=== PATIENT | female | born 1960 | race Caucasian/White ===

== ENCOUNTER 2018-01-06 08:22 | Emergency (ER) | payer OTHER ==
[~2018-01-06] VITALS: Ht 165.1 cm; Wt 89.6 kg
[~2018-01-06 08:22] MED LIST: ASPI81TA28 PO; CITA40TA12 PO; CYCL10TA6 PO; KLN5X PO; PREG1CAP28 PO; SIMV20TA2 PO; TRAM1TAB14 PO
[2018-01-06 08:26] VITALS: TEMP 37.4; Ht 165.1 cm; Wt 89.6 kg
[2018-01-06] MEDS ORDERED: SULF1TAB92 PO (08:50)
[2018-01-06] MEDS ORDERED: ONDANSETRON INJ 2 MG/ML 2 ML VIAL IV STA (08:59)
[2018-01-06] MEDS ORDERED: SODIUM CHLORIDE 0.9% 1000ML 1,000 ML IV STA (08:59)
[2018-01-06] MEDS: MoRPHine SULFATE 4 MG/ML 1 ML CARP\\VIAL IV PRN ×2 (09:09→10:02)
[2018-01-06] MEDS ORDERED: OPTIRAY 320 IV PRN (09:15)
[2018-01-06 09:21] LABS: BASO % 0.2 %; BASO ABS # 0.02 K/uL (0-0.2); EOS % 0.2 %; EOS ABS # 0.02 K/uL (0-0.5); HEMATOCRIT 42.6 % (37-47); HEMOGLOBIN 14.9 g/dL (12.0-16.0); IG# 0.02 K/uL (0.00-0.02); LYMPH % 17.6 %; LYMPH ABS # 1.42 K/uL (1.2-3.4); MEAN CELL VOLUME 87.1 fL (80-100); MEAN CORPUSCULAR HEMOGLOBIN 30.5 pg (25-34); MEAN PLATELET VOLUME 9.3 fL (7.4-10.4); MONO % 8.8 %; MONO ABS # 0.71 K/uL (0.11-0.59); PLATELET COUNT 154 K/uL (130-400); RED CELL DISTRIBUTION WIDTH CV 13.6 % (11.5-14.5); RED CELL DISTRIBUTION WIDTH SD 43.3 fL (36.4-46.3); WHITE BLOOD COUNT 8.09 K/uL (4.8-10.8)
[2018-01-06 09:41] LABS: ALBUMIN 3.8 gm/dl (3.4-5.0); CALCIUM 8.6 mg/dl (8.5-10.1); CREATININE 0.63 mg/dl (0.60-1.20); POTASSIUM 3.5 mmol/L (3.5-5.1)
[2018-01-06 09:44] LABS: TOTAL PROTEIN 7.4 gm/dl (6.4-8.2)
--- NOTE | 2018-01-06 10:29 | DIAGNOSTIC IMAGING REPORT ---
ABDOMEN AND PELVIS CT WITH IV CONTRAST CT DOSE: 694.56 mGy.cm HISTORY: Acute lower abdominal pain lower abd pain, hx hyster, appy, gallbladder removed. ? diverti TECHNIQUE: Multiaxial CT images of the abdomen and pelvis were performed following the use of intravenous contrast. A dose lowering technique was utilized adhering to the principles of ALARA. COMPARISON STUDY: None. FINDINGS: Partially imaged cysts of the left lower lobe. Mild subsegmental bibasilar atelectasis. There is no pneumatosis or pneumoperitoneum identified. Imaged inferior cardiac chambers are unremarkable. Evaluation of the solid abdominal organs is limited without the use of IV contrast. There is moderate intrahepatic biliary ductal dilation, likely secondary to postcholecystectomy state with dilation of the common bile duct measuring 1.7 cm transversely, also likely postsurgical in nature. There are several calcified lesions of the subcapsular posterior right hepatic lobe measuring up to 6 mm. Spleen, and adrenal glands are unremarkable. Moderate generalized pancreatic atrophy. Low attenuating lesions of the kidneys bilaterally measuring up to 2.7 cm on the left suggesting renal cyst. No renal calculi or obstructive uropathy. The ureters and bladder appear unremarkable. Uterus appears to be surgically absent. Moderate atherosclerosis of the aorta without aneurysm. No bulky adenopathy. Postsurgical changes of the stomach suggesting prior gastric bypass with small hiatal hernia. There is no small bowel obstruction. There is moderate circumferential wall thickening about the distal sigmoid colon with moderate to extensive inflammatory changes centered about an inflamed diverticulum on image 334 series 3. No evidence of perforation or drainable fluid collection. Mild free fluid within the dependent pelvis. The appendix appears surgically absent. Soft tissues are unremarkable. Multilevel degenerative changes about the spine. IMPRESSION: 1. Findings compatible with acute uncomplicated sigmoid diverticulitis. No evidence of perforation or abscess. 2. No evidence of small bowel obstruction. 3. Prior cholecystectomy, hysterectomy, appendectomy and gastric bypass. 4. Moderate intrahepatic and extrahepatic biliary ductal dilation is likely secondary to postcholecystectomy state. Electronically signed by: Eleazar Fofana M.D. 01/06/2018 10:27 AM Dictated Date/Time: 01/06/2018 10:19 AM
[2018-01-06] MEDS ORDERED: CIPROFLOXACIN 500 MG TAB PO STA (10:46)
[2018-01-06] MEDS ORDERED: METRONIDAZOLE 250 MG TAB PO STA (10:46)
[2018-01-06 11:09] VITALS: BP 121/77; PULSE 90; O2SAT 95
--- NOTE | 2018-01-06 11:26 | EMERGENCY ROOM VISIT NOTE ---
History Report prepared by Ruma: Zohaib Pollock Under the Supervision of: Dr. Mark Powell D.O. First contact with patient: 08:53 Chief Complaint: ABDOMINAL PAIN Stated Complaint: ABD PAIN History of Present Illness The patient is a 57 year old female who presents to the Emergency Room with complaints of constant abdominal pain for the past 4 days. The patient states that the pain is worsened with walking and sitting down. The patient notes that she has a history of diverticulitis, and she states that the pain feels similar. She additionally notes that she has been nauseous for the past 3 days, and she was able to eat a little bit yesterday. She denies any vomiting, though she is dry heaving. The patient states that she had diarrhea a few days ago, though she now is constipated. She notes that she has been passing a lot a foul smelling gas recently. She has a history of a hysterectomy, cholecystectomy, appendectomy, and a gastric bypass surgery. The patient states that she has recently been getting over a UTI, and she states that this feels different than a UTI. She states that she is not currently on any blood thinners. The patient denies any shortness of breath or cough. Source of History: patient Onset: 4 days ago Position: abdomen Timing: constant Modifying Factors (Worsening): other (walking and sitting) Associated Symptoms: + nausea, + diarrhea, No cough, No SOB, No vomiting Note: Associated symptoms: passing a lot of foul smelling gas Review of Systems See HPI for pertinent positives & negatives. A total of 10 systems reviewed and were otherwise negative. Past Medical & Surgical Medical Problems: (1) Arthritis (2) Fibromyalgia (3) Osteoporosis Social History Smoking Status: Never Smoker Marital Status: Housing Status: lives with significant other Occupation Status: retired Current/Historical Medications Scheduled Trimethoprim/Sulfamethoxazole (Bactrim 400MG/80MG), 0.5 TAB PO DAILY Allergies Coded Allergies: Codeine (Verified Allergy, Unknown, ., 01/06/18) Physical Exam Vital Signs Date Time Temp Pulse Resp B/P (MAP) Pulse Ox O2 Delivery O2 Flow Rate FiO2 01/06/18 11:09 90 16 121/77 95 Room Air 01/06/18 10:01 82 16 125/61 95 Room Air 01/06/18 08:26 37.4 99 20 121/79 96 Room Air Physical Exam CONSTITUTIONAL/VITAL SIGNS: Reviewed / noted above. GENERAL: Non-toxic in appearance. INTEGUMENTARY: Warm, dry, and [place]. HEAD: Normocephalic. EYES: without scleral icterus or trauma. ENT/OROPHARYNX: clear and moist. LYMPHADENOPATHY/NECK: Is supple without lymphadenopathy or meningismus. RESPIRATORY: Lungs clear and equal. CARDIOVASCULAR: Regular rate and rhythm. GI/ABDOMEN: Diffuse tenderness to the lower abdomen. Soft. No organomegaly or pulsatile mass. No rebound or guarding. Normal bowel sounds. EXTREMITIES: Warm and well perfused. BACK: No CVA tenderness. NEUROLOGICAL: Intact without focal deficits. PSYCHIATRIC: normal affect. MUSCULOSKELETAL: Normally developed with good muscle tone. Medical Decision & Procedures ER Provider Diagnostic Interpretation: Radiology results as stated below per my review and radiologist interpretation: ABDOMEN AND PELVIS CT WITH IV CONTRAST CT DOSE: 694.56 mGy.cm HISTORY: Acute lower abdominal pain lower abd pain, hx hyster, appy, gallbladder removed. ? diverti TECHNIQUE: Multiaxial CT images of the abdomen and pelvis were performed following the use of intravenous contrast. A dose lowering technique was utilized adhering to the principles of ALARA. COMPARISON STUDY: None. FINDINGS: Partially imaged cysts of the left lower lobe. Mild subsegmental bibasilar atelectasis. There is no pneumatosis or pneumoperitoneum identified. Imaged inferior cardiac chambers are unremarkable. Evaluation of the solid abdominal organs is limited without the use of IV contrast. There is moderate intrahepatic biliary ductal dilation, likely secondary to postcholecystectomy state with dilation of the common bile duct measuring 1.7 cm transversely, also likely postsurgical in nature. There are several calcified lesions of the subcapsular posterior right hepatic lobe measuring up to 6 mm. Spleen, and adrenal glands are unremarkable. Moderate generalized pancreatic atrophy. Low attenuating lesions of the kidneys bilaterally measuring up to 2.7 cm on the left suggesting renal cyst. No renal calculi or obstructive uropathy. The ureters and bladder appear unremarkable. Uterus appears to be surgically absent. Moderate atherosclerosis of the aorta without aneurysm. No bulky adenopathy. Postsurgical changes of the stomach suggesting prior gastric bypass with small hiatal hernia. There is no small bowel obstruction. There is moderate circumferential wall thickening about the distal sigmoid colon with moderate to extensive inflammatory changes centered about an inflamed diverticulum on image 334 series 3. No evidence of perforation or drainable fluid collection. Mild free fluid within the dependent pelvis. The appendix appears surgically absent. Soft tissues are unremarkable. Multilevel degenerative changes about the spine. IMPRESSION: 1. Findings compatible with acute uncomplicated sigmoid diverticulitis. No evidence of perforation or abscess. 2. No evidence of small bowel obstruction. 3. Prior cholecystectomy, hysterectomy, appendectomy and gastric bypass. 4. Moderate intrahepatic and extrahepatic biliary ductal dilation is likely secondary to postcholecystectomy state. Electronically signed by: Eleazar Fofana M.D. 01/06/2018 10:27 AM Dictated Date/Time: 01/06/2018 10:19 AM Laboratory Results 01/06/18 09:09 Red Blood Count 4.89, Mean Corpuscular Volume 87.1, Mean Corpuscular Hemoglobin 30.5, Mean Corpuscular Hemoglobin Concent 35.0, Mean Platelet Volume 9.3, Neutrophils (%) (Auto) 73.0, Lymphocytes (%) (Auto) 17.6, Monocytes (%) (Auto) 8.8, Eosinophils (%) (Auto) 0.2, Basophils (%) (Auto) 0.2, Neutrophils # (Auto) 5.90, Lymphocytes # (Auto) 1.42, Monocytes # (Auto) 0.71, Eosinophils # (Auto) 0.02, Basophils # (Auto) 0.02 01/06/18 09:09 Test 01/06/18 09:02 01/06/18 09:09 Urine Color YELLOW Urine Appearance CLEAR (CLEAR) Urine pH 7.5 (4.5-7.5) Urine Specific [place] 1.010 (1.000-1.030) Urine Protein NEG (NEG) Urine Glucose (UA) NEG (NEG) Urine Ketones NEG (NEG) Urine Occult Blood NEG (NEG) Urine Nitrite NEG (NEG) Urine Bilirubin NEG (NEG) Urine Urobilinogen NEG (NEG) Urine Leukocyte Esterase NEG (NEG) Urine WBC (Auto) 0 /hpf (0-5) Urine RBC (Auto) 0-4 /hpf (0-4) Urine Hyaline Casts (Auto) 0 /lpf (0-5) Urine Epithelial Cells (Auto) 0-5 /lpf (0-5) Urine Bacteria (Auto) NEG (NEG) White Blood Count 8.09 K/uL (4.8-10.8) Red Blood Count 4.89 M/uL (4.2-5.4) Hemoglobin 14.9 g/dL (12.0-16.0) Hematocrit 42.6 % (37-47) Mean Corpuscular Volume 87.1 fL (80-100) Mean Corpuscular Hemoglobin 30.5 pg (25-34) Mean Corpuscular Hemoglobin Concent 35.0 g/dl (32-36) Platelet Count 154 K/uL (130-400) Mean Platelet Volume 9.3 fL (7.4-10.4) Neutrophils (%) (Auto) 73.0 % Lymphocytes (%) (Auto) 17.6 % Monocytes (%) (Auto) 8.8 % Eosinophils (%) (Auto) 0.2 % Basophils (%) (Auto) 0.2 % Neutrophils # (Auto) 5.90 K/uL (1.4-6.5) Lymphocytes # (Auto) 1.42 K/uL (1.2-3.4) Monocytes # (Auto) 0.71 K/uL (0.11-0.59) Eosinophils # (Auto) 0.02 K/uL (0-0.5) Basophils # (Auto) 0.02 K/uL (0-0.2) RDW Standard Deviation 43.3 fL (36.4-46.3) RDW Coefficient of Variation 13.6 % (11.5-14.5) Immature Granulocyte % (Auto) 0.2 % Immature Granulocyte # (Auto) 0.02 K/uL (0.00-0.02) Anion Gap 5.0 mmol/L (3-11) Est Creatinine Clear Calc Drug Dose 107.6 ml/min Estimated GFR () 114.6 Estimated GFR (Non- 98.9 BUN/Creatinine Ratio 17.6 (10-20) Calcium Level 8.6 mg/dl (8.5-10.1) Total Bilirubin 1.0 mg/dl (0.2-1) Direct Bilirubin 0.2 mg/dl (0-0.2) Aspartate Amino Transf (AST/SGOT) 17 U/L (15-37) Alanine Aminotransferase (ALT/SGPT) 22 U/L (12-78) Alkaline Phosphatase 86 U/L (45-117) Total Protein 7.4 gm/dl (6.4-8.2) Albumin 3.8 gm/dl (3.4-5.0) Lipase 106 U/L (73-393) Laboratory results as stated above per my review. Medications Administered Medications (Trade) Dose Ordered Sig/Zandra Route Start Time Stop Time Status Last Admin Dose Admin Sodium Chloride 1,000 ml @ 999 mls/hr Q1H1M STAT IV 01/06/18 08:59 01/06/18 09:59 DC 01/06/18 08:59 999 MLS/HR Ondansetron HCl (Zofran Inj) 4 mg NOW STAT IV 01/06/18 08:59 01/06/18 09:02 DC 01/06/18 09:09 4 MG Morphine Sulfate (MoRPHine SULFATE INJ) 4 mg Q1H PRN IV 01/06/18 09:00 01/20/18 08:59 01/06/18 10:02 4 MG Ciprofloxacin (Cipro Tab) 500 mg NOW STAT PO 01/06/18 10:46 01/06/18 10:47 DC 01/06/18 11:08 500 MG Metronidazole (Flagyl Tab) 500 mg NOW STAT PO 01/06/18 10:46 01/06/18 10:47 DC 01/06/18 11:09 500 MG ED Course 0853: Previous medical records were reviewed. The patient was evaluated in room B10. A complete history and physical examination was performed. 0859: Zofran 4mg IV, Sodium Chloride 1000 ml @ 999 mls/hr IV 0900: Morphine Sulfate 4mg IV 1046: Flagyl Tab 500mg PO, Cipro Tab 500mg PO 1118: On reevaluation, the patient is doing well. I discussed the results and findings with the patient. She verbalized agreement of the treatment plan. She was discharged home. Medical Decision Differential considered: pancreatitis, hepatitis, or acute cholecystitis, AAA, UTI, pyelonephritis, kidney stones, appendicitis, diverticulitis, shingles, bowel obstruction mesenteric ischemia, intussusception, and hernia. This is a 57-year-old female who presents to the ED with a chief complaint of abdominal pain. The patient states that her symptoms started about 4 days ago. She reports that she has had decreased appetite and has not really been eating or drinking in the past 3 days. She states that her first day she had some diarrhea but has not had any issues since. She states that she might feel little constipated. She reports pain in the lower abdomen that feels somewhat like previous diverticulitis. She states that her pain occasionally shoots the rectum. Her physical exam reveals diffuse tenderness to the lower abdomen. Her vital signs here are normal and she is afebrile. CBC and complete metabolic panel as well as urinalysis was normal. CT scan reveals an uncomplicated diverticulitis. The patient was treated with IV morphine, IV Zofran, IV fluids, p.o. Cipro and p.o. Flagyl. She was discharged on Cipro and Flagyl. She did not want pain medication for discharge. She was felt to be stable for discharge. Medication Reconcilliation Current Medication List: was personally reviewed by me Blood Pressure Screening Patient's blood pressure: Normal blood pressure Impression Primary Impression: Diverticulitis Scribe Attestation The scribe's documentation has been prepared under my direction and personally reviewed by me in its entirety. I confirm that the note above accurately reflects all work, treatment, procedures, and medical decision making performed by me. Departure Information Dispostion Home / Self-Care Referrals No Doctor, Assigned (PCP) Patient Instructions ED Diverticulitis, My [facility] Additional Instructions Cipro and Flagyl as prescribed. Liquid diet for few days. Tylenol for pain. Follow-up with your doctor for further care and evaluation in 1-2 days. Return to the emergency department for worsening or new symptoms or any concerns. You have been examined and treated today on an emergency basis only. This is not a substitute for, or an effort to provide, complete comprehensive medical care. It is impossible to recognize and treat all injuries or illnesses in a single emergency department visit. It is therefore important that you follow up closely with your doctor. Call as soon as possible for an appointment.
== END 2018-01-06 11:41 | disposition home or self-care (01) ==
LOC: C.EDB 08:24
DX: K57.92 Diverticulitis of intestine, part unspecified, without perforation or abscess without bleeding (principal); Z90.710 Acquired absence of both cervix and uterus; Z90.49 Acquired absence of other specified parts of digestive tract; Z98.84 Bariatric surgery status; M19.90 Unspecified osteoarthritis, unspecified site; M79.7 Fibromyalgia; M81.0 Age-related osteoporosis without current pathological fracture; Z88.5 Allergy status to narcotic agent